=== PATIENT | male | born 1980 | race Caucasian/White ===

== ENCOUNTER 2018-10-20 10:21 | Emergency (ER) | payer SELFPAY ==
[~2018-10-20] VITALS: Wt 76.4 kg
[2018-10-20] MEDS ORDERED: KETOROLAC 30 MG INJ IM STA (12:00)
[2018-10-20] MEDS ORDERED: IBUP-1542 PO (13:17)
[2018-10-20 13:23] VITALS: BP 130/74; PULSE 68; RESP 18
--- NOTE | 2018-10-20 17:14 | ERD ---
ER Documentation Chief Complaint Chief Complaint Flank pain times 1 day HPI 38-year-old male presents for left flank pain times 1 day. There is associated left upper quadrant abdominal pain with radiation to his groin. Denies any fevers or chills. Denies dysuria. No prior similar symptoms. States that the pain is 10 out of 10. Denies any nausea or vomiting. Did not try any medications at home. Denies chest pain or shortness of breath. ROS All systems reviewed and are negative except as per history of present illness. Medications Home Meds Active Scripts Ibuprofen* (Motrin*) 600 Mg Tab, 600 MG PO Q6H PRN for PAIN AND OR ELEVATED TE MP, #30 TAB Prov:HALINA ESPINAL DO 10/20/18 Allergies Allergies: Coded Allergies: No Known Allergy (Unverified , 10/20/18) PMhx/Soc Medical and Surgical Hx: pt denies Medical Hx, pt denies Surgical Hx Hx Alcohol Use: No Hx Substance Use: No Hx Tobacco Use: No Smoking Status: Never smoker Physical Exam Vitals Temperature 98, pulse 78, respiration 18, blood pressure 137/86, O2 saturation 99% on room air Physical Exam Const: No acute distress Resp: Clear to auscultation bilaterally Cardio: Regular rate and rhythm, no murmurs, bilateral radial dorsalis pedis pulses intact Abd: Soft, non distended. Normal bowel sounds, mild left upper quadrant tenderness to palpation, no McBurney's point tenderness, no Bernardo sign, no rebound or guarding noted Skin: No petechiae or rashes Back: Moderate left flank tenderness to palpation Ext: No cyanosis, or edema Neur: Awake and alert, bilateral lower extremity sensation intact Psych: Normal Mood and Affect Results 24 hrs Laboratory Tests Test 10/20/18 12:05 White Blood Count 10.5 10^3/ul Red Blood Count 5.57 10^6/ul Hemoglobin 15.9 g/dl Hematocrit 48.2 % Mean Corpuscular Volume 86.5 fl Mean Corpuscular Hemoglobin 28.5 pg Mean Corpuscular Hemoglobin Concent 33.0 g/dl Red Cell Distribution Width 13.1 % Platelet Count 291 10^3/UL Mean Platelet Volume 8.5 fl Immature Granulocytes % 0.500 % Neutrophils % 83.7 % Lymphocytes % 10.2 % Monocytes % 4.9 % Eosinophils % 0.4 % Basophils % 0.3 % Nucleated Red Blood Cells % 0.0 /100WBC Immature Granulocytes # 0.050 10^3/ul Neutrophils # 8.8 10^3/ul Lymphocytes # 1.1 10^3/ul Monocytes # 0.5 10^3/ul Eosinophils # 0.0 10^3/ul Basophils # 0.0 10^3/ul Nucleated Red Blood Cells # 0.0 10^3/ul Urine Color LT. YELLOW Urine Clarity CLEAR Urine pH 5.0 Urine Specific P[place]ger 1.015 Urine Ketones NEGATIVE mg/dL Urine Nitrite NEGATIVE mg/dL Urine Bilirubin NEGATIVE mg/dL Urine Urobilinogen 0.2 E.U./dL mg/dL Urine Leukocyte Esterase NEGATIVE Kosta/ul Urine Microscopic RBC 0-2 /HPF Urine Microscopic WBC 0-2 /HPF Urine Bacteria RARE /HPF Urine Hemoglobin 2+ mg/dL Urine Glucose 1+ mg/dL Urine Total Protein NEGATIVE mg/dl Sodium Level 140 mmol/L Potassium Level 4.1 mmol/L Chloride Level 104 mmol/L Carbon Dioxide Level 28 mmol/L Anion Gap 8 Blood Urea Nitrogen 14 mg/dl Creatinine 0.84 mg/dl Est Glomerular Filtrat Rate mL/min > 60 mL/min Glucose Level 121 mg/dl Calcium Level 9.9 mg/dl Total Bilirubin 0.1 mg/dl Direct Bilirubin 0.00 mg/dl Indirect Bilirubin 0.1 mg/dl Aspartate Amino Transf (AST/SGOT) 31 IU/L Alanine Aminotransferase (ALT/SGPT) 34 IU/L Alkaline Phosphatase 108 IU/L Total Protein 7.2 g/dl Albumin 4.3 g/dl Globulin 2.90 g/dl Albumin/Globulin Ratio 1.48 Lipase 67 U/L Current Medications Medications Dose Sig/Lupillo Start Time Status Last (Trade) Ordered Route PRN Stop Time Admin Dose Reason Admin Ketorolac 30 mg ONCE STAT 10/20/18 DC 10/20/18 Tromethamine IM 12:00 12:16 (Toradol) 10/20/18 12:02 Procedures/MDM Medical Decision Making: Differential diagnosis includes but not limited to acute gastroenteritis, acute gastritis, appendicitis, cholecystitis, pancreatitis. Patient appeared well on physical exam. Nontoxic appearing. There was left upper quadrant and left flank tenderness to palpation. Labs: CBC showed no anemia, no elevated WBC to suggest infection CMP showed no electrolyte abnormalities, there was normal kidney and liver function Lipase was normal UA was negative for infection, no hematuria noted. Imaging: Abdominal ultrasound was unremarkable There is low suspicion for surgical abdomen. Patient may have musculoskeletal pain ED course: Patient was given Toradol. Symptoms improved with treatment. Prescription(s): Patient given prescription for Motrin. Patient advised to follow up with PCP in 1-2 days. Patient advised to return to ED for new or worsening symptoms. Patient stable on discharge from the ED. Disclaimer: Inadvertent spelling and grammatical errors are likely due to EHR/dictation software use and do not reflect on the overall quality of patient care. Also, please note that the electronic time recorded on this note does not necessarily reflect the actual time of the patient encounter. Departure Diagnosis: Primary Impression: Abdominal pain Condition: Fair Patient Instructions: Abdominal Pain Referrals: [facility] YOU HAVE RECEIVED A MEDICAL SCREENING EXAM AND THE RESULTS INDICATE THAT YOU DO NOT HAVE A CONDITION THAT REQUIRES URGENT TREATMENT IN THE EMERGENCY DEPARTMENT. FURTHER EVALUATION AND TREATMENT OF YOUR CONDITION CAN WAIT UNTIL YOU ARE SEEN IN YOUR DOCTORS OFFICE WITHIN THE NEXT 1-2 DAYS. IT IS YOUR RESPONSIBILITY TO MAKE AN APPOINTMENT FOR FOLOW-UP CARE. IF YOU HAVE A PRIMARY DOCTOR --you should call your primary doctor and schedule an appointment IF YOU DO NOT HAVE A PRIMARY DOCTOR YOU CAN CALL OUR PHYSICIAN REFERRAL HOTLINE AT IF YOU CAN NOT AFFORD TO SEE A PHYSICIAN YOU CAN CHOSE FROM THE FOLLOWING [facility] [address] [facility]. [facility] [address] [facility] [facility] [address] [facility] [facility] [address] [facility] [facility] [address] [facility] [facility]. [address] Additional Instructions: Llame al doctor MAANA y sae lorene ANDIE PARA DENTRO DE 1-2 PACHECO.Dgale a la secretaria que nosotros le instruimos hacer esta andie.Avise o llame si wright condicin se empeora antes de la andie. Regresa aqui si peor o no mejor. HALINA ESPINAL DO Oct 20, 2018 17:14
== END 2018-10-20 13:24 | disposition home or self-care (01) ==
LOC: FTE 10:21
DX: R10.9 Unspecified abdominal pain (principal)
CPT/HCPCS: 36415; 76700; 80053; 81001; 83690; 85025; 96372; 99285; J1885